=== PATIENT | female | born 1935 | race Caucasian/White ===

== ENCOUNTER 2017-01-15 17:51 | Emergency (ER) | payer MEDICARE, MEDICAID ==
[~2017-01-15] VITALS: Ht 162.6 cm; Wt 109.0 kg
[~2017-01-15 17:51] MED LIST: ADVA250A INH; ALBU6.7H INH; AMIO200 PO; CARD240C6 PO; CEPH500 PO; DIPH12.5S PO; Digoxin PO; ENAL10TA7 PO; FURO20 PO; GABA100C4 PO; GABA300C3 PO; KCL20 PO; LEVO.1 PO; LORA10 PO; LORTA5 PO; METO25 PO; MOME17I; NAPR-576 PO; POTA-243 PO; PRED20 PO; RANI150 PO; RIVA20 PO; ZOLP10TA3 PO
[2017-01-15 18:12] VITALS: BP 202/91; PULSE 69; RESP 16; TEMP 97.6; O2SAT 97
[2017-01-15 18:34] VITALS: BP 217/105; PULSE 67; RESP 18; O2SAT 95
[2017-01-15] MEDS ORDERED: SENO8.6T5 PO (18:41)
[2017-01-15] MEDS ORDERED: FURO1TAB62 PO (18:41)
[2017-01-15] MEDS ORDERED: LEVO.125 PO (18:41)
[2017-01-15] MEDS ORDERED: GABA300C5 PO (18:41)
[2017-01-15] MEDS ORDERED: LOSA50TA PO (18:41)
[2017-01-15] MEDS ORDERED: POTA-163 PO (18:41)
[2017-01-15] MEDS ORDERED: FLUT50SP EACH NARE (18:41)
[2017-01-15] MEDS ORDERED: METO25TA3 PO (18:41)
[2017-01-15] MEDS ORDERED: CLAR10CA3 PO (18:41)
[2017-01-15] MEDS ORDERED: MELA5TAB15 PO (18:41)
[2017-01-15] MEDS ORDERED: PERC10TA27 PO (18:41)
--- NOTE | 2017-01-15 18:52 | PD ---
HPI Chief Complaint: Hypertension Time Seen by Provider: 18:52 Travel History International Travel<30 days: No Contact w/Intl Traveler<30days: No Traveled to known affect area: No History of Present Illness HPI 81 year-old female history of hypertension,, CAD, CHF, presents to the emergency department today for evaluation of right sided headache and high blood pressure since 4 PM. Patient states she took her evening antihypertensives and her blood pressure still has not reduced. Denies any chest tightness. No difficulty breathing. No focal deficit weakness. No nausea or vomiting. She has no other symptoms to report. PFSH Past Medical History Arthritis: Yes Asthma: Yes Heart Rhythm Problems: No Cancer: No Cardiovascular Problems: Yes High Cholesterol: No Chest Pain: Yes Congestive Heart Failure: Yes Diabetes: No Endocrine: Yes Genitourinary: No Hypertension: Yes Immune Disorder: No Kidney Stones: Yes Musculoskeletal: Yes (Osteoperosis) Neurologic: No Psychiatric: No Respiratory: Yes Sleep Apnea: Yes (wears CPAP) Thyroid Disease: Yes ?: Not Past Surgical History Abdominal Surgery: Yes (GALLBLADDER REMOVAL, APPENDECTOMY) Appendectomy: Yes Cardiac Surgery: No Cholecystectomy: Yes Ear Surgery: No Endocrine Surgery: No Eye Surgery: No Genitourinary Surgery: No Gynecologic Surgery: Yes (HYSTERECTOMY) Hysterectomy: Yes Joint Replacement: Yes (BILATERAL KNEE REPLACEMENT) Thoracic Surgery: No Tonsillectomy: Yes Other Surgery: Yes Social History Alcohol Use: No Tobacco Use: No Substance Use: No Allergies-Medications (Allergen,Severity, Reaction): Coded Allergies: benazepril (Unverified Allergy, Severe, 01/12/17) ANGIOEDEMA captopril (Unverified Allergy, Severe, 01/12/17) ANGIOEDEMA diatrizoate meglumine (Unverified Allergy, Severe, hives, 01/12/17) enalaprilat (Unverified Allergy, Severe, Edema, 01/12/17) ANGIOEDEMA fosinopril (Unverified Allergy, Severe, 01/12/17) ANGIOEDEMA gadobenic acid (Unverified Allergy, Severe, hives, 01/12/17) gadodiamide (Unverified Allergy, Severe, hives, 01/12/17) gadoteridol (Unverified Allergy, Severe, hives, 01/12/17) iodixanol (Unverified Allergy, Severe, hives, 01/12/17) iohexol (Unverified Allergy, Severe, hives, 01/12/17) lisinopril (Unverified Allergy, Severe, 01/12/17) ANGIOEDEMA nitrofurantoin (Unverified Allergy, Severe, 01/12/17) itching quinapril (Unverified Allergy, Severe, 01/12/17) ANGIOEDEMA Reported Meds & Prescriptions Reported Meds & Active Scripts Active Amlodipine (Amlodipine Besylate) 5 Mg Tab 5 Mg PO DAILY Reported Senokot (Sennosides) 8.6 Mg Tab 8.6 Mg PO DAILY Fluticasone Nasal [place] 50 Mcg/Act Naspr 100 Mcg EACH NARE BID 50 mcg/spray Claritin (Loratadine) 10 Mg Cap 10 Mg PO DAILY Potassium Chloride ER (Potassium Chloride) 20 Meq Tab 20 Meq PO DAILY Lasix (Furosemide) 20 Mg Tab 20 Mg PO DAILY PRN Melatonin 5 Mg Tab 5 Mg PO HS Percocet (Oxycodone-Acetaminophen) 10-325 mg Tab 1 Tab PO BID PRN Gabapentin 300 Mg Cap 300 Mg PO HS Losartan (Losartan Potassium) 50 Mg Tab 50 Mg PO DAILY Metoprolol Tartrate 25 Mg Tab 25 Mg PO BID Synthroid (Levothyroxine Sodium) 125 Mcg Tab 125 Mcg PO DAILY Review of Systems Except as stated in HPI: all other systems reviewed are Neg Physical Exam Narrative GENERAL: Well-nourished elderly female patient, in no acute distress SKIN: Focused skin assessment warm/dry. HEAD: Atraumatic. Normocephalic. EYES: Pupils equal and round. No scleral icterus. No injection or drainage. EOMI. ENT: No nasal bleeding or discharge. Mucous membranes pink and moist. NECK: Trachea midline. No JVD. CARDIOVASCULAR: Regular rate and rhythm. RESPIRATORY: No accessory muscle use. Clear to auscultation. Breath sounds equal bilaterally. GASTROINTESTINAL: Abdomen soft, non-tender, nondistended. Hepatic and splenic margins not palpable. MUSCULOSKELETAL: No obvious deformities. No clubbing. No cyanosis. No edema. NEUROLOGICAL: Awake and alert. No obvious cranial nerve deficits. Motor grossly within normal limits. Normal speech. PSYCHIATRIC: Appropriate mood and affect; insight and judgment normal. Data Data Last Documented VS Vital Signs Date Time Temp Pulse Resp B/P Pulse Ox O2 Delivery O2 Flow Rate FiO2 01/15/17 22:29 144/72 01/15/17 20:10 69 01/15/17 19:38 22 01/15/17 18:34 95 Room Air 01/15/17 18:12 97.6 Orders Electrocardiogram (01/15/17 19:18) Prothrombin Time / Inr (Pt) (01/15/17 19:18) Act Partial Throm Time (Ptt) (01/15/17 19:18) Complete Blood Count With Diff (01/15/17 19:18) Basic Metabolic Panel (Bmp) (01/15/17 19:18) Creatine Kinase (Cpk) (01/15/17 19:18) Troponin I (01/15/17 19:18) Urinalysis - C+S If Indicated (01/15/17 19:18) Ct Brain W/O Iv Contrast(Rout) (01/15/17 19:18) Chest, Single Ap (01/15/17 19:18) Ecg Monitoring (01/15/17 19:18) Iv Access Insert/Monitor (01/15/17 19:18) Oximetry (01/15/17 19:18) Sodium Chloride 0.9% Flush (Ns Flush) (01/15/17 19:30) Hydralazine Inj (Apresoline Inj) (01/15/17 19:45) Clonidine (Catapres) (01/15/17 19:45) Urine Culture (01/15/17 19:30) Ketorolac Inj (Toradol Inj) (01/15/17 20:45) Labs Laboratory Tests Test 01/15/17 19:30 White Blood Count 10.5 TH/MM3 Red Blood Count 4.23 MIL/MM3 Hemoglobin 13.4 GM/DL Hematocrit 40.9 % Mean Corpuscular Volume 96.6 FL Mean Corpuscular Hemoglobin 31.7 PG Mean Corpuscular Hemoglobin 32.9 % Concent Red Cell Distribution Width 14.0 % Platelet Count 210 TH/MM3 Mean Platelet Volume 11.7 FL Neutrophils (%) (Auto) 56.3 % Lymphocytes (%) (Auto) 32.7 % Monocytes (%) (Auto) 7.4 % Eosinophils (%) (Auto) 3.1 % Basophils (%) (Auto) 0.5 % Neutrophils # (Auto) 5.9 TH/MM3 Lymphocytes # (Auto) 3.4 TH/MM3 Monocytes # (Auto) 0.8 TH/MM3 Eosinophils # (Auto) 0.3 TH/MM3 Basophils # (Auto) 0.1 TH/MM3 CBC Comment AUTO DIFF Differential Comment AUTO DIFF CONFIRMED Prothrombin Time 10.7 SEC Prothromb Time International 1.0 RATIO Ratio Activated Partial 26.1 SEC Thromboplast Time Urine Color LIGHT-YELLOW Urine Turbidity CLEAR Urine pH 7.5 Urine Specific Sarah 1.006 Urine Protein NEG mg/dL Urine Glucose (UA) NEG mg/dL Urine Ketones NEG mg/dL Urine Occult Blood TRACE Urine Nitrite NEG Urine Bilirubin NEG Urine Urobilinogen LESS THAN 2.0 MG/DL Urine Leukocyte Esterase NEG Urine RBC 5 /hpf Urine Bacteria RARE /hpf Microscopic Urinalysis Comment CATH-CULTURE IND Sodium Level 138 MEQ/L Potassium Level 3.7 MEQ/L Chloride Level 104 MEQ/L Carbon Dioxide Level 29.6 MEQ/L Anion Gap 4 MEQ/L Blood Urea Nitrogen 8 MG/DL Creatinine 0.62 MG/DL Estimat Glomerular Filtration 93 ML/MIN Rate Random Glucose 93 MG/DL Calcium Level 9.1 MG/DL Total Creatine Kinase 60 U/L Troponin I LESS THAN 0.02 NG/ML MDM Medical Decision Making Medical Screen Exam Complete: Yes Emergency Medical Condition: Yes Medical Record Reviewed: Yes Differential Diagnosis Hypertension versus hypertension urgency versus intracranial etiology versus electrolyte abnormality Narrative Course 81 year-old female presents to the emergency department for evaluation of headache and hypertension. Patient is quite hypertensive here in the emergency department. She has no focal deficits or weakness. . I discussed the patient with my attending physician and patient is given IV hydralazine and 0.1 mg on nothing by mouth.CT imaging of brain is without acute concern. CBC and BMP are also without acute concern. Urinalysis is a trace occult blood, 5 RBC, rare bacteria, cultures indicated. Patient just completed a course antibiotics for UTI. We will wait for culture to grow before starting any antibiotic. Upon reassessment, patient's blood pressure has reduced. Her headache has resolved. She is sitting up in bed eating. Amlodipine has been prescribed and patient will contact her primary care provider tomorrow. She agrees to return immediately with any acute worsening of symptoms. Diagnosis Primary Impression: Hypertension Qualified Code: I10 - Essential hypertension Additional Impressions: Headache Qualified Code: R51 - Acute nonintractable headache, unspecified headache type Hematuria Qualified Code: R31.29 - Other microscopic hematuria Referrals: Primary Care Physician Patient Instructions: General Instructions, Hypertension (ED) Departure Forms: Tests/Procedures Additional Instructions: Start amlodipine 5 mg by mouth daily with your daily medications Follow-up with your primary care provider. Contact them for an appointment early next week Return immediately to the emergency department with any acute worsening of symptoms Med/Other Pt SpecificInfo: Prescription(s) given Scripts Amlodipine 5 Mg Tab5 Mg PO DAILY #30 TAB Ref 0 Prov:Ai Tejada 01/15/17 Disposition: 01 DISCHARGE HOME Condition: Stable Ai Tejada Jan 15, 2017 18:52
[2017-01-15] MEDS ORDERED: SODIUM CHLORIDE 0.9% FLUSH 10 ML FLUSH IVF PRN (19:30)
[2017-01-15 19:38] VITALS: RESP 22
[2017-01-15] MEDS ORDERED: cloNIDine HCL 0.1 MG TAB PO ONE (19:45)
[2017-01-15] MEDS ORDERED: hydrALAZINE HCL 20 MG/ML VIAL IV PUSH ONE (19:45)
--- NOTE | 2017-01-15 19:53 | RADRPT ---
EXAM DATE/TIME: 01/15/2017 19:27 [facility] COMPARISON: No previous studies available for comparison. INDICATIONS : Headaches with dizziness for one day. RADIATION DOSE: 56.39 CTDIvol (mGy) MEDICAL HISTORY : Hypertension. Congestive heart failure. SURGICAL HISTORY : Appendectomy. Cholecystectomy.Hysterectomy. ENCOUNTER: Initial ACUITY: 1 day PAIN SCALE: 3/10 LOCATION: Bilateral cranial TECHNIQUE: Multiple contiguous axial images were obtained of the head. Using automated exposure control and adj ustment of the mA and/or kV according to patient size, radiation dose was kept as low as reasonably a chievable to obtain optimal diagnostic quality images. DICOM format image data is available electro nically for review and comparison. FINDINGS: CEREBRUM: The ventricles are normal for age. No evidence of midline shift, mass lesion, hemorrhage or acute in farction. No extra-axial fluid collections are seen. POSTERIOR FOSSA: The cerebellum and brainstem are intact. The 4th ventricle is midline. The cerebellopontine angle i s unremarkable. EXTRACRANIAL: The visualized portion of the orbits is intact. SKULL: Benign-appearing diffuse hyperostosis noted. No focal lesion. No fracture. CONCLUSION: No acute intracranial abnormality. Kaz Espinoza MD on January 15, 2017 at 19:51 Board Certified Radiologist. This report was verified electronically.
[2017-01-15 19:54] LABS: AUTOMATED NEUTROPHIL # 5.9 TH/MM3 (1.8-7.7); BASOPHIL # 0.1 TH/MM3 (0-0.2); BASOPHIL % 0.5 % (0.0-2.0); EOSINOPHIL # 0.3 TH/MM3 (0-0.4); EOSINOPHIL % 3.1 % (0.0-4.0); HEMATOCRIT 40.9 % (35.0-46.0); LYMPH % 32.7 % (9.0-44.0); LYMPHOCYTE # 3.4 TH/MM3 (1.0-4.8); MEAN CELL VOLUME 96.6 FL (80.0-100.0); MEAN CORPUSCULAR HEMOGLOBIN 31.7 PG (27.0-34.0); MEAN CORPUSCULAR HGB CONC 32.9 % (32.0-36.0); MONO % 7.4 % (0.0-8.0); NEUT % 56.3 % (16.0-70.0); PLATELET COUNT 210 TH/MM3 (150-450); RED BLOOD COUNT 4.23 MIL/MM3 (4.00-5.30); WHITE BLOOD COUNT 10.5 TH/MM3 (4.0-11.0)
[2017-01-15 19:58] LABS: HEMO FLAGS AUTO DIFF
[2017-01-15 20:04] LABS: APTT (PATIENT) 26.1 SEC (24.3-30.1); PROTHROMBIN TIME - PATIENT 10.7 SEC (9.8-11.6)
--- NOTE | 2017-01-15 20:05 | RADRPT ---
EXAM DATE/TIME: 01/15/2017 19:39 [facility] COMPARISON: CHEST SINGLE AP, October 31, 2013, 13:57. INDICATIONS : CVA. MEDICAL HISTORY : Hypertension. SURGICAL HISTORY : None. ENCOUNTER: Initial ACUITY: 1 day PAIN SCORE: 0/10 LOCATION: Bilateral chest FINDINGS: A single view of the chest demonstrates the lungs to be symmetrically aerated without evidence of mas s, infiltrate or effusion. The cardiomediastinal contours are unremarkable. Osseous structures are intact. CONCLUSION: No evidence of acute cardiopulmonary disease. Kaz Espinoza MD on January 15, 2017 at 20:03 Board Certified Radiologist. This report was verified electronically.
[2017-01-15 20:06] LABS: BACTERIA, URINE RARE /hpf; BLOOD, URINE TRACE (NEG); GLUCOSE,URINE NEG (NEG); KETONE, URINE NEG (NEG); NITRITE,URINE NEG (NEG); PH, URINE 7.5 (5.0-8.5); URINE COLOR LIGHT-YELLOW (YELLW/STRAW)
[2017-01-15 20:10] VITALS: BP 170/62; PULSE 69
[2017-01-15 20:14] LABS: COMMENT (UR) CATH-CULTURE IND; CULTURE IF INDICATED CATH CULTURE IND
[2017-01-15 20:18] LABS: ANION GAP 4 MEQ/L (5-15); BICARBONATE 29.6 MEQ/L (21.0-32.0); BLOOD UREA NITROGEN 8 MG/DL (7-18); CHLORIDE 104 MEQ/L (98-107); GLOMERULAR FILTRATION RATE 93 ML/MIN (>89); POTASSIUM 3.7 MEQ/L (3.5-5.1); SODIUM (NA) 138 MEQ/L (136-145)
[2017-01-15 20:22] LABS: CREATINE KINASE 60 U/L (26-192)
[2017-01-15 20:26] LABS: SCAN/DIFF AUTO DIFF CONFIRMED
[2017-01-15] MEDS ORDERED: AMLO5TAB2 PO (20:45)
[2017-01-15] MEDS ORDERED: KETOROLAC TROMETHAMINE 30 MG/ML (IVP) VIAL IV PUSH ONE (20:45)
[2017-01-15 22:29] VITALS: BP 144/72
--- NOTE | 2017-01-16 15:19 | EKG ---
Date Performed: 01/15/2017 Time Performed: 19:50:47 PTAGE: 81 years EKG: Sinus rhythm BORDERLINE LEFT AXIS DEVIATION MODERATE VOLTAGE CRITERIA FOR LVH, CONSIDER NORMAL VARIANT NONSPECIFI C T-WAVE ABNORMALITY Compared to previous tracing, there's a rhythm change from atrial fibrillation t o sinus rhythm. ST-T changes have improved to some degree. BORDERLINE ECG PREVIOUS TRACING : 11/02/2013 01.56 DOCTOR: Kam Munoz Interpretating Date/Time 01/16/2017 15:19:15
== END 2017-01-15 22:30 | disposition home or self-care (01) ==
LOC: NEPE 17:51
DX: I10 Essential (primary) hypertension (principal); R51 Headache; R31.29 Other microscopic hematuria; E03.9 Hypothyroidism, unspecified; G47.33 Obstructive sleep apnea (adult) (pediatric); J45.909 Unspecified asthma, uncomplicated; M19.90 Unspecified osteoarthritis, unspecified site; R07.9 Chest pain, unspecified
CPT/HCPCS: 70450; 71010; 80048; 81001; 82550; 84484; 85025; 85610; 85730; 87086; 93005; 96374; 99285; J0360

== ENCOUNTER 2017-03-08 10:10 | Emergency (ER) | payer MEDICARE, MEDICAID ==
[~2017-03-08] VITALS: Ht 162.6 cm; Wt 108.0 kg
[~2017-03-08 10:10] MED LIST changes: -ADVA250A INH; -ALBU6.7H INH; -AMIO200 PO; +AMLO5TAB2 PO; -CARD240C6 PO; -CEPH500 PO; +CLAR10CA3 PO; -DIPH12.5S PO; -Digoxin PO; -ENAL10TA7 PO; +FLUT50SP EACH NARE; +FURO1TAB62 PO; -FURO20 PO; -GABA100C4 PO; -GABA300C3 PO; +GABA300C5 PO; -KCL20 PO; -LEVO.1 PO; +LEVO.125 PO; -LORA10 PO; -LORTA5 PO; +LOSA50TA PO; +MELA5TAB15 PO; -METO25 PO; +METO25TA3 PO; -MOME17I; -NAPR-576 PO; +PERC10TA27 PO; +POTA-163 PO; -POTA-243 PO; -PRED20 PO; -RANI150 PO; -RIVA20 PO; +SENO8.6T5 PO; -ZOLP10TA3 PO
[2017-03-08 11:18] VITALS: BP 166/76; PULSE 81; RESP 18; TEMP 98.8; O2SAT 100
--- NOTE | 2017-03-08 11:43 | PD ---
HPI Chief Complaint: Hypertension Time Seen by Provider: 11:30 Travel History International Travel<30 days: No Contact w/Intl Traveler<30days: No Traveled to known affect area: No History of Present Illness HPI This is a 81-year-old female with history of hypertension who presents for evaluation of headache. She reports that yesterday evening she developed a frontal aching headache, nausea and vomiting. She reports that this is what she typically experiences when her blood pressure is elevated. She reports that she checked her blood pressure was elevated however she does not recall the specific numbers. The headache and hypertension persisted today which prompted evaluation. Her blood pressure is currently 166/76 and she reports that this is her normal blood pressure. She reports that the headache has improved some but she continues to have some headache and nausea. She denies blurred vision, chest pain, shortness of breath, abdominal pain, flank pain, dysuria, fevers, chills. She reports that one month ago her primary care physician increased her losartan to 50 mg twice a day as well as her metoprolol to 25 mg twice a day. She is also on Norvasc 5 mg once a day. She has been taking her medication as prescribed. She has no other complaints at this time. [facility] Past Medical History Arthritis: Yes Asthma: Yes Heart Rhythm Problems: No Cancer: No Cardiovascular Problems: Yes High Cholesterol: No Chest Pain: Yes Congestive Heart Failure: Yes Diabetes: No Endocrine: Yes Gastrointestinal Disorders: No Genitourinary: No Hypertension: Yes Immune Disorder: No Implanted Vascular Access Dvce: No Kidney Stones: Yes Musculoskeletal: Yes (Osteoperosis) Neurologic: No Psychiatric: No Respiratory: Yes Sleep Apnea: Yes (wears CPAP) Thyroid Disease: Yes ?: Not Past Surgical History Abdominal Surgery: Yes (GALLBLADDER REMOVAL, APPENDECTOMY) Appendectomy: Yes Cardiac Surgery: No Cholecystectomy: Yes Ear Surgery: No Endocrine Surgery: No Eye Surgery: No Genitourinary Surgery: No Gynecologic Surgery: Yes (HYSTERECTOMY) Hysterectomy: Yes Joint Replacement: Yes (BILATERAL KNEE REPLACEMENT) Neurologic Surgery: No Thoracic Surgery: No Tonsillectomy: Yes Other Surgery: Yes Social History Alcohol Use: No Tobacco Use: No Substance Use: No Allergies-Medications (Allergen,Severity, Reaction): Coded Allergies: benazepril (Unverified Allergy, Severe, 01/12/17) ANGIOEDEMA captopril (Unverified Allergy, Severe, 01/12/17) ANGIOEDEMA diatrizoate meglumine (Unverified Allergy, Severe, hives, 01/12/17) enalaprilat (Unverified Allergy, Severe, Edema, 01/12/17) ANGIOEDEMA fosinopril (Unverified Allergy, Severe, 01/12/17) ANGIOEDEMA gadobenic acid (Unverified Allergy, Severe, hives, 01/12/17) gadodiamide (Unverified Allergy, Severe, hives, 01/12/17) gadoteridol (Unverified Allergy, Severe, hives, 01/12/17) iodixanol (Unverified Allergy, Severe, hives, 01/12/17) iohexol (Unverified Allergy, Severe, hives, 01/12/17) lisinopril (Unverified Allergy, Severe, 01/12/17) ANGIOEDEMA nitrofurantoin (Unverified Allergy, Severe, 01/12/17) itching quinapril (Unverified Allergy, Severe, 01/12/17) ANGIOEDEMA Iodinated Contrast- Oral and IV Dye (Verified Allergy, Unknown, 03/08/17) Reported Meds & Prescriptions Reported Meds & Active Scripts Active Phenergan (Promethazine HCl) 25 Mg Tablet 25 Mg PO Q6H PRN Amlodipine (Amlodipine Besylate) 5 Mg Tab 5 Mg PO DAILY Reported Omeprazole 20 Mg Tab 20 Mg PO DAILY Amitriptyline (Amitriptyline HCl) 25 Mg Tab 25 Mg PO HS Tramadol (Tramadol HCl) 50 Mg Tab 50 Mg PO QID Melatonin 3 Mg Tab 3 Mg PO HS Metoprolol Succinate ER 24 HR (Metoprolol Succinate) 25 Mg Tab 25 Mg PO BID Fluticasone Nasal [place] 50 Mcg/Act Naspr 2 [place] EACH NARE BID 50 mcg/spray Losartan (Losartan Potassium) 50 Mg Tab 50 Mg PO DAILY Synthroid (Levothyroxine Sodium) 125 Mcg Tab 125 Mcg PO DAILY Review of Systems Except as stated in HPI: all other systems reviewed are Neg Physical Exam Narrative GENERAL: Pleasant well-developed well-nourished female in no acute distress answering questions appropriately. Her vital signs have been reviewed. SKIN: Warm and dry. HEAD: Atraumatic. Normocephalic. EYES: Pupils equal and round. No scleral icterus. No injection or drainage. ENT: No nasal bleeding or discharge. Mucous membranes pink and moist. NECK: Trachea midline. No JVD. CARDIOVASCULAR: Regular rate and rhythm. No murmur appreciated. RESPIRATORY: No accessory muscle use. Clear to auscultation. Breath sounds equal bilaterally. GASTROINTESTINAL: Abdomen soft, non-tender, nondistended. Hepatic and splenic margins not palpable. MUSCULOSKELETAL: No obvious deformities. No clubbing. No cyanosis. No edema. NEUROLOGICAL: Awake and alert. No obvious cranial nerve deficits. Motor grossly within normal limits. Normal speech. PSYCHIATRIC: Appropriate mood and affect; insight and judgment normal. Data Data Last Documented VS Vital Signs Date Time Temp Pulse Resp B/P (MAP) Pulse Ox O2 Delivery O2 Flow Rate FiO2 03/08/17 12:13 75 18 161/73 (102) 95 Room Air 03/08/17 11:18 98.8 Orders Orders Complete Blood Count With Diff (03/08/17 11:34) Comprehensive Metabolic Panel (03/08/17 11:34) Ct Brain W/O Iv Contrast(Rout) (03/08/17 11:34) Ecg Monitoring (03/08/17 11:34) Iv Access Insert/Monitor (03/08/17 11:34) Oximetry (03/08/17 11:34) Ondansetron Inj (Zofran Inj) (03/08/17 11:45) Morphine Inj (Morphine Inj) (03/08/17 11:45) Electrocardiogram (03/08/17 ) Magnesium (Mg) (03/08/17 11:34) Labs Laboratory Tests Test 03/08/17 12:05 White Blood Count 10.4 TH/MM3 Red Blood Count 4.62 MIL/MM3 Hemoglobin 14.8 GM/DL Hematocrit 44.1 % Mean Corpuscular Volume 95.3 FL Mean Corpuscular Hemoglobin 32.1 PG Mean Corpuscular Hemoglobin Concent 33.7 % Red Cell Distribution Width 13.3 % Platelet Count 160 TH/MM3 Mean Platelet Volume 11.6 FL Neutrophils (%) (Auto) 82.5 % Lymphocytes (%) (Auto) 13.5 % Monocytes (%) (Auto) 3.7 % Eosinophils (%) (Auto) 0.1 % Basophils (%) (Auto) 0.2 % Neutrophils # (Auto) 8.6 TH/MM3 Lymphocytes # (Auto) 1.4 TH/MM3 Monocytes # (Auto) 0.4 TH/MM3 Eosinophils # (Auto) 0.0 TH/MM3 Basophils # (Auto) 0.0 TH/MM3 CBC Comment DIFF FINAL Differential Comment Blood Urea Nitrogen 8 MG/DL Creatinine 0.61 MG/DL Random Glucose 105 MG/DL Total Protein 7.9 GM/DL Albumin 3.5 GM/DL Calcium Level 9.3 MG/DL Magnesium Level 2.1 MG/DL Alkaline Phosphatase 137 U/L Aspartate Amino Transf (AST/SGOT) 26 U/L Alanine Aminotransferase (ALT/SGPT) 16 U/L Total Bilirubin 0.8 MG/DL Sodium Level 138 MEQ/L Potassium Level 3.6 MEQ/L Chloride Level 103 MEQ/L Carbon Dioxide Level 25.9 MEQ/L Anion Gap 9 MEQ/L Estimat Glomerular Filtration Rate 95 ML/MIN MDM Medical Decision Making Medical Screen Exam Complete: Yes Emergency Medical Condition: Yes Medical Record Reviewed: Yes Differential Diagnosis Hypertensive urgency, intracranial hemorrhage, subarachnoid hemorrhage, tension headache, temporal arteritis Narrative Course The patient will be placed on ECG monitoring pulse oximetry. Plan is for basic lab work, EKG, CT brain. The patient will be given IV morphine and Zofran. Discussed with my attending who agrees with plan of care. Upon recheck the patient's headache is resolved and she is currently symptomatic. Her blood pressures improved to [address] brain is unremarkable and lab work is unremarkable. The patient is encouraged to follow- up with her primary care physician to discuss her blood pressure management. She is stable for discharge. Diagnosis Primary Impression: Cephalgia Qualified Codes: R51 - Headache Additional Impression: Hypertension Qualified Codes: I10 - Essential (primary) hypertension Additional Instructions: Follow-up close with primary care physician. Phenergan for nausea. Return for any emergent medical conditions. Med/Other Pt SpecificInfo: Prescription(s) given Scripts Promethazine (Phenergan) 25 Mg Tablet 25 MG PO Q6H Y for NAUSEA OR VOMITING, #15 TAB 0 Refills Prov: Christo Sweeney MD 03/08/17 Disposition: 01 DISCHARGE HOME Condition: Stable Sergo Briggs Mar 08, 2017 11:43
[2017-03-08] MEDS ORDERED: MORPHINE SULFATE 4 MG/ML INJ IV PUSH ONE (11:45)
[2017-03-08] MEDS ORDERED: ONDANSETRON HCL 4 MG/2 ML VIAL IVP ONE (11:45)
[2017-03-08] MEDS ORDERED: METO25TA6 PO (11:59)
[2017-03-08] MEDS ORDERED: AMIT25TA9 PO (12:00)
[2017-03-08] MEDS ORDERED: MELA3TAB PO (12:00)
[2017-03-08] MEDS ORDERED: OMEP20TA PO (12:00)
[2017-03-08] MEDS ORDERED: TRAM50TA PO (12:00)
[2017-03-08 12:06] VITALS: RESP 18; O2SAT 98
--- NOTE | 2017-03-08 12:12 | RADRPT ---
EXAM DATE/TIME: 03/08/2017 12:01 [facility] COMPARISON: CT BRAIN W/O CONTRAST, January 15, 2017, 19:27. INDICATIONS : Dizziness, nausea and vomiting today. RADIATION DOSE: 36.28 CTDIvol (mGy) MEDICAL HISTORY : Hypertension. SURGICAL HISTORY : Hysterectomy. Cholecystectomy. ENCOUNTER: Initial ACUITY: 1 day PAIN SCALE: 0/10 LOCATION: Bilateral head TECHNIQUE: Multiple contiguous axial images were obtained of the head. Using automated exposure control and adj ustment of the mA and/or kV according to patient size, radiation dose was kept as low as reasonably a chievable to obtain optimal diagnostic quality images. DICOM format image data is available electro nically for review and comparison. FINDINGS: CEREBRUM: The ventricles are normal for age. No evidence of midline shift, mass lesion, hemorrhage or acute in farction. No extra-axial fluid collections are seen. POSTERIOR FOSSA: The cerebellum and brainstem are intact. The 4th ventricle is midline. The cerebellopontine angle i s unremarkable. EXTRACRANIAL: The visualized portion of the orbits is intact. SKULL: The calvaria is intact. No evidence of skull fracture. CONCLUSION: Normal examination for a patient of this age. No significant change has occurred. Brown Mayer MD on March 08, 2017 at 12:09 Board Certified Radiologist. This report was verified electronically.
[2017-03-08 12:13] VITALS: BP 161/73; PULSE 75; RESP 18; O2SAT 95
[2017-03-08 12:57] LABS: AUTOMATED NEUTROPHIL # 8.6 TH/MM3 (1.8-7.7); BASOPHIL % 0.2 % (0.0-2.0); EOSINOPHIL % 0.1 % (0.0-4.0); HEMATOCRIT 44.1 % (35.0-46.0); HEMO FLAGS DIFF FINAL; LYMPH % 13.5 % (9.0-44.0); LYMPHOCYTE # 1.4 TH/MM3 (1.0-4.8); MEAN CELL VOLUME 95.3 FL (80.0-100.0); MEAN CORPUSCULAR HEMOGLOBIN 32.1 PG (27.0-34.0); MEAN CORPUSCULAR HGB CONC 33.7 % (32.0-36.0); MONO % 3.7 % (0.0-8.0); NEUT % 82.5 % (16.0-70.0); PLATELET COUNT 160 TH/MM3 (150-450); RED BLOOD COUNT 4.62 MIL/MM3 (4.00-5.30); RED CELL DISTRIBUTION WIDTH 13.3 % (11.6-17.2); WHITE BLOOD COUNT 10.4 TH/MM3 (4.0-11.0)
[2017-03-08 13:07] LABS: ALKALINE PHOSPHATASE 137 U/L (45-117); ALT (GPT) 16 U/L (10-53); TOTAL BILIRUBIN ADULT 0.8 MG/DL (0.2-1.0)
[2017-03-08 13:15] LABS: ANION GAP 9 MEQ/L (5-15); AST (GOT) 26 U/L (15-37); BICARBONATE 25.9 MEQ/L (21.0-32.0); BLOOD UREA NITROGEN 8 MG/DL (7-18); CHLORIDE 103 MEQ/L (98-107); GLOMERULAR FILTRATION RATE 95 ML/MIN (>89); MAGNESIUM 2.1 MG/DL (1.5-2.5); POTASSIUM 3.6 MEQ/L (3.5-5.1); SODIUM (NA) 138 MEQ/L (136-145)
[2017-03-08] MEDS ORDERED: PROM25TA10 PO (13:16)
--- NOTE | 2017-03-08 16:00 | EKG ---
Date Performed: 03/08/2017 Time Performed: 13:08:00 PTAGE: 81 years EKG: Sinus rhythm BORDERLINE LEFT AXIS DEVIATION INCOMPLETE RIGHT BUNDLE BRANCH BLOCK MODERATE T-WAVE ABNORMALITY, CON CULINARY CHEF ANTERIOR ISCHEMIA Compared to prior tracing no significant change ABNORMAL ECG PREVIOUS TRACING : 01/15/2017 19.50 DOCTOR: Isaías Murray Interpretating Date/Time 03/08/2017 15:59:50
== END 2017-03-08 16:48 | disposition home or self-care (01) ==
LOC: NEPE 10:10
DX: R51 Headache (principal); I10 Essential (primary) hypertension; R11.2 Nausea with vomiting, unspecified; R94.31 Abnormal electrocardiogram [ECG] [EKG]; E07.9 Disorder of thyroid, unspecified; G47.30 Sleep apnea, unspecified; Z87.39 Personal history of other diseases of the musculoskeletal system and connective tissue; Z87.09 Personal history of other diseases of the respiratory system; Z86.79 Personal history of other diseases of the circulatory system; Z87.442 Personal history of urinary calculi
CPT/HCPCS: 70450; 80053; 83735; 85025; 93005; 96374; 96375; 99285; J2270; J2405

== ENCOUNTER 2018-03-30 19:42 | Observation (INO) ==
[2018-03-30] MEDS ORDERED: Labetalol HCl Inj 100 MG/20 ML Vial IV.PUSH ONE ×2 (20:28→21:19)
--- NOTE | 2018-03-30 20:43 | ED ---
HPI General Chief complaint: Headache Stated complaint: Headache Time Seen by Provider: 03/30/18 20:22 Source: patient and EMS Mode of arrival: EMS Limitations: no limitations History of Present Illness HPI narrative: 82-year-old female with history of hypertension brought in by ambulance from home for evaluation of a headache. Patient reports that the headache started 3 hours prior to arrival, gradual in onset, is frontal and radiates to her right temporal area, currently 10 out of 10. She is unable to describe the pain, but states that it is constant. She has history of arthritis and states that she took Tylenol at around 1 PM today, and was afraid to take anything else for pain when her headache started. She does not have history of headaches. She has chronic neck pain from arthritis and she has had 2 surgeries on her neck, however no new neck pain or stiffness today. No fevers or chills. No visual changes. No paresthesias or motor deficits. No nausea or vomiting. No photophobia. BP is notably elevated at 220/110. She reports that she is on 4 different antihypertensives and has taken them today. Related Data Home Medications Medication Instructions Recorded Confirmed furosemide [Lasix] 20 mg PO DAILY 03/18/18 03/30/18 gabapentin 100 mg PO HS 03/18/18 03/30/18 gabapentin 300 mg PO BID 03/18/18 03/30/18 levothyroxine [Synthroid] 125 mcg PO DAILY 03/18/18 03/30/18 loratadine 10 mg PO DAILY 03/18/18 03/30/18 losartan 50 mg PO DAILY 03/18/18 03/30/18 metoprolol tartrate 25 mg PO BID 03/18/18 03/30/18 prednisone 5 mg PO DAILY 03/18/18 03/30/18 spironolactone 25 mg PO DAILY 03/18/18 03/30/18 Allergies Allergy/AdvReac Type Severity Reaction Status Date / Time benazepril Allergy Severe Hives Verified 03/30/18 20:06 captopril Allergy Severe Hives Verified 03/30/18 20:06 diatrizoate meglumine Allergy Severe hives Verified 03/30/18 20:06 enalaprilat Allergy Severe Edema Verified 03/30/18 20:06 fosinopril Allergy Severe Hives Verified 03/30/18 20:06 gadobenic acid Allergy Severe hives Verified 03/30/18 20:06 gadodiamide Allergy Severe hives Verified 03/30/18 20:06 gadoteridol Allergy Severe hives Verified 03/30/18 20:06 iodixanol Allergy Severe hives Verified 03/30/18 20:06 iohexol Allergy Severe hives Verified 03/30/18 20:06 lisinopril Allergy Severe Hives Verified 03/30/18 20:06 nitrofurantoin Allergy Severe Hives Verified 03/30/18 20:06 quinapril Allergy Severe Hives Verified 03/30/18 20:06 Iodinated Contrast- Oral and Allergy Intermediate Hives Verified 03/30/18 20:06 IV Dye Review of Systems ROS: all other systems reviewed are negative PMFSH Social History Social History Substance History: No History of Abuse Second Hand Smoke Exposure: No Smoking Status: Never smoker How Often Do You Have a Drink Containing Alcohol: Never Recent Travel in [facility] within the Last 8 Weeks: No Recent Out of Country Travel within the Last 8 Weeks: No Immunization History Tetanus Immunization: Unsure Exam Narrative Exam Narrative: GENERAL: Well-developed, well-nourished, sitting comfortably on the side of her stretcher, no apparent distress, awake, alert, GCS 15. SKIN: Focused skin assessment warm/dry. No rash. HEAD: Atraumatic. Normocephalic. EYES: Pupils equal, round, 3 mm, reactive to light. EOMI. No nystagmus. No scleral icterus. No injection or drainage. ENT: No nasal bleeding or discharge. Mucous membranes pink and moist. NECK: Trachea midline. No JVD. No nuchal rigidity. CARDIOVASCULAR: Regular rate and rhythm. RESPIRATORY: No accessory muscle use. Clear to auscultation. Breath sounds equal bilaterally. GASTROINTESTINAL: Abdomen soft, non-tender, nondistended. MUSCULOSKELETAL: No obvious deformities. No clubbing. No cyanosis. No edema. NEUROLOGICAL: Awake and alert. No obvious cranial nerve deficits. Motor grossly within normal limits. Normal speech. PSYCHIATRIC: Appropriate mood and affect; insight and judgment normal. Course Initial Documented Vital Signs Temperature 98.1 F 03/30/18 19:56 Pulse Rate 76 03/30/18 19:56 Respiratory Rate 20 03/30/18 19:56 Blood Pressure 196/114 H 03/30/18 19:56 Pulse Oximetry 98 03/30/18 19:56 Last Documented Vital Signs Temperature 98.1 F 03/30/18 19:56 Pulse Rate 74 03/30/18 22:34 Respiratory Rate 18 03/30/18 22:34 Blood Pressure 161/72 H 03/30/18 22:34 Pulse Oximetry 95 03/30/18 22:34 Medical Decision Making MDM Narrative Medical decision making narrative: Vital signs reviewed. CBC and CMP are essentially unremarkable. ESR is 45. CT head: CONCLUSION: 1. Negative CT Head non contrast. Patient was given 10 mg of IV labetalol initially with some improvement in her blood pressure to 170/90. She was also provided IV Reglan and dose of oral Tylenol and on reassessment she states her headache is slightly improved at an 8 out of 10. She was given another 10 mg of IV labetalol again with some improvement in her blood pressure to 150/60. On reassessment she rates her headache as 5 out of 10. Her ESR is slightly elevated at 45, however she is not having any visual changes. This could still be temporal arteritis. She will be given a dose of Solu-Medrol. Because of her body habitus, I believe it would be difficult to perform an LP at the bedside. The headache was gradual in onset, and CT head was performed within 6 hours of symptom onset. I believe that SAH is less likely. She is overall very well-appearing. Given intractable headache, she will be admitted for overnight observation for further treatment and evaluation. Case discussed with hospitalist Dr. Grover who will admit the patient to his service. Medical Screen Exam Complete: Yes Emergency Medical Condition: Yes Lab Data Result diagrams: 03/30/18 20:37 03/30/18 20:37 Lab Results 03/30/18 03/30/18 03/30/18 Range/Units 20:37 20:37 20:37 WBC 13.2 H (4.0-11.0) th/mm3 RBC 4.28 (4.00-5.30) mil/mm3 Hgb 13.7 (11.6-15.3) gm/dL Hct 40.7 (35.0-46.0) % MCV 95.2 (80.0-100.0) fL MCH 32.1 (27.0-34.0) pg MCHC 33.7 (32.0-36.0) % RDW 13.9 (11.6-17.2) % Plt Count 179 (150-450) th/mm3 MPV 11.3 H (7.0-11.0) fL Neut % (Auto) 70.3 H (16.0-70.0) % Lymph % (Auto) 22.8 (9.0-44.0) % [place] % (Auto) 5.7 (0.0-8.0) % Eos % (Auto) 0.8 (0.0-4.0) % Baso % (Auto) 0.4 (0.0-2.0) % Neut # (Auto) 9.3 H (1.8-7.7) th/mm3 Lymph # (Auto) 3.0 (1.0-4.8) th/mm3 Marathon # (Auto) 0.7 (0.0-0.9) th/mm3 Eos # (Auto) 0.1 (0.0-0.4) th/mm3 Baso # (Auto) 0.1 (0.0-0.2) th/mm3 WBC Differential . Differential Comment Auto diff final ESR (0-30) mm/hr PT 10.0 (9.8-11.6) sec INR 1.0 Ratio APTT 27.3 (24.3-30.1) sec Sodium 141 (136-145) meq/L Potassium 3.5 (3.5-5.1) meq/L Chloride 104 (98-107) meq/L Carbon Dioxide 29.2 (21.0-32.0) meq/L Anion Gap 8 (5-15) meq/L BUN 16 (7-18) mg/dL Creatinine 0.70 (0.50-1.00) mg/dL Estimated GFR 81 L (>89) mL/min Random Glucose 99 (74-106) mg/dL Calcium 9.4 (8.5-10.1) mg/dL Total Bilirubin 0.6 (0.2-1.0) mg/dL AST 17 (15-37) U/L ALT 17 (10-53) U/L Alkaline Phosphatase 114 (45-117) U/L Total Protein 8.1 (6.4-8.2) g/dL Albumin 3.6 (3.4-5.0) g/dL 10/31/18 Range/Units 20:37 WBC (4.0-11.0) th/mm3 RBC (4.00-5.30) mil/mm3 Hgb (11.6-15.3) gm/dL Hct (35.0-46.0) % MCV (80.0-100.0) fL MCH (27.0-34.0) pg MCHC (32.0-36.0) % RDW (11.6-17.2) % Plt Count (150-450) th/mm3 MPV (7.0-11.0) fL Neut % (Auto) (16.0-70.0) % Lymph % (Auto) (9.0-44.0) % Marathon % (Auto) (0.0-8.0) % Eos % (Auto) (0.0-4.0) % Baso % (Auto) (0.0-2.0) % Neut # (Auto) (1.8-7.7) th/mm3 Lymph # (Auto) (1.0-4.8) th/mm3 Marathon # (Auto) (0.0-0.9) th/mm3 Eos # (Auto) (0.0-0.4) th/mm3 Baso # (Auto) (0.0-0.2) th/mm3 WBC Differential Differential Comment ESR 45 H (0-30) mm/hr PT (9.8-11.6) sec INR Ratio APTT (24.3-30.1) sec Sodium (136-145) meq/L Potassium (3.5-5.1) meq/L Chloride (98-107) meq/L Carbon Dioxide (21.0-32.0) meq/L Anion Gap (5-15) meq/L BUN (7-18) mg/dL Creatinine (0.50-1.00) mg/dL Estimated GFR (>89) mL/min Random Glucose (74-106) mg/dL Calcium (8.5-10.1) mg/dL Total Bilirubin (0.2-1.0) mg/dL AST (15-37) U/L ALT (10-53) U/L Alkaline Phosphatase (45-117) U/L Total Protein (6.4-8.2) g/dL Albumin (3.4-5.0) g/dL Imaging Data Radiologist's impression: Head CT 03/30/18 20:28 CONCLUSION: 1. Negative CT Head non contrast. . Discharge Plan Discharge Disposition Patient Disposition: 30 Still Patient Discharge Condition Condition: Stable Discharge Details Diagnosis: Acute intractable headache Physicians Team ED Provider: Michelet Roth Primary Care Provider: UNKNOWN, Rxs /Orders / Referrals /Forms Prescriptions: No Action losartan 50 mg Tablet 50 mg PO DAILY RF: 0 prednisone 5 mg Tablet 5 mg PO DAILY RF: 0 spironolactone 25 mg Tablet 25 mg PO DAILY RF: 0 levothyroxine [Synthroid] 125 mcg Tablet 125 mcg PO DAILY RF: 0 gabapentin 300 mg Capsule 300 mg PO BID RF: 0 furosemide [Lasix] 20 mg Tablet 20 mg PO DAILY RF: 0 gabapentin 100 mg Capsule 100 mg PO HS RF: 0 loratadine 10 mg Tablet 10 mg PO DAILY RF: 0 metoprolol tartrate 25 mg Tablet 25 mg PO BID RF: 0 Discharge Interventions Interventions: Vital Signs Last Done: 03/30/18 22:34 Status ED Status: With Doctor
--- NOTE | 2018-03-30 20:47 | CT ---
EXAM DATE: 03/30/2018 8:42 PM EDT AGE/SEX: 82 years / Female INDICATIONS: Headache. CLINICAL DATA: This is the patient's initial encounter. Patient reports that signs and symptoms have been present for 1 day and indicates a pain score of 10/10. MEDICAL/SURGICAL HISTORY: Spinal stenosis. Hypertension. Congestive heart failure. Cholecystectom y. RADIATION DOSE: 66.34 CTDI (mGy) COMPARISON: [facility] [place], 03/18/2018. . TECHNIQUE: CT of the head without contrast. Using automated exposure control and adjustment of the mA and/or kV according to patient size, radiation dose was kept as low as reasonably achievable to ob tain optimal diagnostic quality images. DICOM format image data is available electronically for revi ew and comparison. FINDINGS: Cerebrum: The ventricles are normal for age. No evidence of midline shift, mass lesion, hemorrhage or acute infarction. No extraaxial fluid collections are seen. Posterior Fossa: The cerebellum and brainstem are intact. The 4th ventricle is midline. The cerebe llopontine angle is unremarkable. Extracranial: The visualized portion of the orbits is intact. Skull: The calvaria is intact. No evidence of skull fracture. CONCLUSION: 1. Negative CT Head non contrast. . Electronically signed by: Percy Sherwood MD 03/30/2018 8:46 PM EDT
[2018-03-30 21:00] LABS: Baso # (Auto) 0.1 th/mm3 (0.0-0.2); Baso % (Auto) 0.4 % (0.0-2.0); Eos # (Auto) 0.1 th/mm3 (0.0-0.4); Eos % (Auto) 0.8 % (0.0-4.0); Hematocrit 40.7 % (35.0-46.0); Hemoglobin 13.7 gm/dL (11.6-15.3); Lymph % (Auto) 22.8 % (9.0-44.0); Mean Corpuscular HGB Conc 33.7 % (32.0-36.0); Mean Corpuscular Hemoglobin 32.1 pg (27.0-34.0); Mean Corpuscular Volume 95.2 fL (80.0-100.0); Mean Platelet Volume 11.3 fL (7.0-11.0); Mono # (Auto) 0.7 th/mm3 (0.0-0.9); Mono % (Auto) 5.7 % (0.0-8.0); Neut # (Auto) 9.3 th/mm3 (1.8-7.7); Neut % (Auto) 70.3 % (16.0-70.0); Platelet Count 179 th/mm3 (150-450); Red Blood Count 4.28 mil/mm3 (4.00-5.30); Red Cell Distribution Width 13.9 % (11.6-17.2); White Blood Count 13.2 th/mm3 (4.0-11.0)
[2018-03-30 21:11] LABS: Activated Partial Thrombo Time 27.3 sec (24.3-30.1)
[2018-03-30] MEDS ORDERED: Acetaminophen 325 MG Tablet PO ONE (21:19)
[2018-03-30 21:30] LABS: Albumin 3.6 g/dL (3.4-5.0); Anion Gap 8 meq/L (5-15); Aspartate Aminotransferase 17 U/L (15-37); Blood Urea Nitrogen 16 mg/dL (7-18); Calcium 9.4 mg/dL (8.5-10.1); Carbon Dioxide 29.2 meq/L (21.0-32.0); Chloride 104 meq/L (98-107); Glomerular Filtration Rate 81 mL/min (>89); Glucose,Random 99 mg/dL (74-106); Potassium 3.5 meq/L (3.5-5.1); Sodium 141 meq/L (136-145)
[2018-03-30 21:31] LABS: Alanine Aminotransferase 17 U/L (10-53)
[2018-03-30 21:33] LABS: Alkaline Phosphatase 114 U/L (45-117); Total Protein 8.1 g/dL (6.4-8.2)
[2018-03-30] MEDS ORDERED: Bisacodyl 10 MG Supp RECTAL PRN (22:52)
[2018-03-31] MEDS ORDERED: Acetaminophen 325 MG Tablet PO ONE (05:21)
[2018-03-31] MEDS ORDERED: Sodium Chloride 0.9% 2 ML Flush PRN IV.FLUSH (05:24)
[2018-03-31 05:29] LABS: Baso % (Auto) 0.3 % (0.0-2.0); Eos # (Auto) 0.1 th/mm3 (0.0-0.4); Eos % (Auto) 0.9 % (0.0-4.0); Hematocrit 40.9 % (35.0-46.0); Hemoglobin 13.8 gm/dL (11.6-15.3); Lymph # (Auto) 4.5 th/mm3 (1.0-4.8); Lymph % (Auto) 29.6 % (9.0-44.0); Mean Corpuscular HGB Conc 33.7 % (32.0-36.0); Mean Corpuscular Hemoglobin 33.2 pg (27.0-34.0); Mean Corpuscular Volume 98.5 fL (80.0-100.0); Mean Platelet Volume 11.1 fL (7.0-11.0); Mono # (Auto) 0.9 th/mm3 (0.0-0.9); Mono % (Auto) 5.9 % (0.0-8.0); Neut # (Auto) 9.6 th/mm3 (1.8-7.7); Neut % (Auto) 63.3 % (16.0-70.0); Platelet Count 175 th/mm3 (150-450); Red Blood Count 4.15 mil/mm3 (4.00-5.30); Red Cell Distribution Width 13.8 % (11.6-17.2); White Blood Count 15.1 th/mm3 (4.0-11.0)
--- NOTE | 2018-03-31 05:30 | P.HPIM ---
History of Present Illness Primary Care Physician: UNKNOWN History of Present Illness: 82-year-old female history of hypertension who is brought in by ambulance to the ER due to acute onset of dull throbbing whole head headache worse over the right eye starting around 6 PM on 03/30. Patient says she typically gets this kind of headache when her blood pressure is high. She checked her blood pressure and found it to be in the 200s. She took her medication but it did not improve and she called EMS to bring her to the hospital. Patient found to have elevated blood pressures up to 214/89 in the ER, however her blood pressure subsequently improved. She reports that headache has almost completely resolved at this time. Denies any nausea, vomiting, chest pain, shortness of breath. Review of Systems All other systems reviewed negative except as stated in HPI PMFSH - History History Provided By: Patient - Medical History Medical History: Medical History (Last Reviewed 03/31/18 @ 05:22 by Melquiades Grover MD) Arthritis CHF (congestive heart failure) FH: total knee replacement HBP (high blood pressure) Hypothyroidism - Surgical History Surgical History: Surgical History (Last Reviewed 03/31/18 @ 05:22 by Melquiades Grover MD) History of tonsillectomy Hx of cholecystectomy - Family History Family History: Family History (Last Updated 03/31/18 @ 05:23 by Melquiades Grover MD) Father Heart disease Stroke Mother Breast cancer Parkinsons disease - Social History I have reviewed the patient's Social History: Yes - Tobacco History Second Hand Smoke Exposure: No Tobacco Use In Past 30 Days: No Smoking Status: Never smoker - Alcohol History How Often Do You Have a Drink Containing Alcohol: Never - Substance Use History Substance History: No History of Abuse - Travel History Recent Travel in the [place] Within the Last 8 Weeks: No Recent Travel Out of the Country Within the Last 8 Weeks: No - Immunization History Tetanus Immunization: Unsure Medications and Allergies Active Medications: Active Medications Al Hydroxide/Mg Hydroxide (Milk Of Magnesia Liq) 30 ml PO Q12H PRN PRN Reason: Mild Constipation Bisacodyl (Dulcolax Supp) 10 mg RECTAL DAILY PRN PRN Reason: SEVERE CONSITIPATION Clonidine HCl (Catapres) 0.1 mg PO Q6H PRN PRN Reason: SBP>180, DBP>100, HR>65 Gabapentin (Neurontin) 300 mg PO BID [facility] Lactulose (Lactulose Liq) 30 ml PO DAILY PRN PRN Reason: SEVERE CONSITIPATION Levothyroxine Sodium (Synthroid) 125 mcg PO DAILY@0700 [facility] Loratadine (Claritin) 10 mg PO DAILY [facility] Losartan Potassium (Cozaar) 50 mg PO DAILY [facility] Metoprolol Tartrate (Lopressor) 25 mg PO BID [facility] Prednisone (Deltasone) 5 mg PO DAILY [facility] Sennosides (Senokot) 17.2 mg PO Q12H PRN PRN Reason: Moderate Constipation Sodium Chloride (Ns Flush) 2 ml IV.FLUSH PRN PRN PRN Reason: FLUSH AFTER USING IV ACCESS Spironolactone (Aldactone) 25 mg PO DAILY [facility] Allergies Allergy/AdvReac Type Severity Reaction Status Date / Time benazepril Allergy Severe Hives Verified 03/30/18 20:06 captopril Allergy Severe Hives Verified 03/30/18 20:06 diatrizoate meglumine Allergy Severe hives Verified 03/30/18 20:06 enalaprilat Allergy Severe Edema Verified 03/30/18 20:06 fosinopril Allergy Severe Hives Verified 03/30/18 20:06 gadobenic acid Allergy Severe hives Verified 03/30/18 20:06 gadodiamide Allergy Severe hives Verified 03/30/18 20:06 gadoteridol Allergy Severe hives Verified 03/30/18 20:06 iodixanol Allergy Severe hives Verified 03/30/18 20:06 iohexol Allergy Severe hives Verified 03/30/18 20:06 lisinopril Allergy Severe Hives Verified 03/30/18 20:06 nitrofurantoin Allergy Severe Hives Verified 03/30/18 20:06 quinapril Allergy Severe Hives Verified 03/30/18 20:06 Iodinated Contrast- Oral and Allergy Intermediate Hives Verified 03/30/18 20:06 IV Dye Home Medications Medication Instructions Recorded Confirmed Type furosemide [Lasix] 20 mg PO DAILY 03/18/18 03/30/18 History gabapentin 100 mg PO HS 03/18/18 03/30/18 History gabapentin 300 mg PO BID 03/18/18 03/30/18 History levothyroxine [Synthroid] 125 mcg PO DAILY 03/18/18 03/30/18 History loratadine 10 mg PO DAILY 03/18/18 03/30/18 History losartan 50 mg PO DAILY 03/18/18 03/30/18 History metoprolol tartrate 25 mg PO BID 03/18/18 03/30/18 History prednisone 5 mg PO DAILY 03/18/18 03/30/18 History spironolactone 25 mg PO DAILY 03/18/18 03/30/18 History Exam Vital signs: Vital Signs 03/30/18 19:56 03/30/18 21:15 03/30/18 21:30 Temperature 98.1 F Pulse Rate 76 82 76 Respiratory Rate 20 18 18 Blood Pressure 196/114 H 214/89 H 209/95 H Pulse Oximetry 98 97 95 03/30/18 21:45 03/30/18 22:00 03/30/18 22:07 Temperature Pulse Rate 74 80 Respiratory Rate 18 18 18 Blood Pressure 172/78 H 150/60 H Pulse Oximetry 95 96 03/30/18 22:34 03/30/18 23:07 03/30/18 23:45 Temperature Pulse Rate 74 75 76 Respiratory Rate 18 18 Blood Pressure 161/72 H 134/74 130/63 Pulse Oximetry 95 98 97 03/31/18 04:00 Temperature 98.4 F Pulse Rate 77 Respiratory Rate 18 Blood Pressure 140/65 Pulse Oximetry 98 Intake & Output 03/30/18 03/30/18 03/31/18 06:59 18:59 06:59 Weight 113.85 kg Other: Date of Last Bowel Movement 03/30/18 Weight On Admission 113.85 kg Narrative: GENERAL: Patient lying in bed. Sleeping, wakes up for exam appears comfortable. Alert and oriented x3. SKIN: Warm and dry. HEAD: Atraumatic. Normocephalic. EYES: Pupils equal and round. No scleral icterus. No injection or drainage. ENT: No nasal bleeding or discharge. Mucous membranes pink and moist. NECK: Trachea midline. No JVD. CARDIOVASCULAR: Regular rate and rhythm. RESPIRATORY: No accessory muscle use. Clear to auscultation. Breath sounds equal bilaterally. GASTROINTESTINAL: Abdomen soft, non-tender, nondistended. Hepatic and splenic margins not palpable. MUSCULOSKELETAL: Extremities without clubbing, cyanosis, or edema. No obvious deformities. NEUROLOGICAL: Awake and alert. No obvious cranial nerve deficits. Motor grossly within normal limits. Five out of 5 muscle strength in the arms and legs. Normal speech. PSYCHIATRIC: Appropriate mood and affect; insight and judgment normal. Results - Labs CBC & Chem 7: 03/30/18 20:37 03/30/18 20:37 Labs: Short CBC 03/30/18 Range/Units 20:37 WBC 13.2 H (4.0-11.0) th/mm3 Hgb 13.7 (11.6-15.3) gm/dL Hct 40.7 (35.0-46.0) % Plt Count 179 (150-450) th/mm3 BMP 03/30/18 20:37 Sodium 141 Potassium 3.5 Chloride 104 Carbon Dioxide 29.2 BUN 16 Creatinine 0.70 Calcium 9.4 Liver Function 03/30/18 Range/Units 20:37 Total Bilirubin 0.6 (0.2-1.0) mg/dL AST 17 (15-37) U/L ALT 17 (10-53) U/L Alkaline Phosphatase 114 (45-117) U/L Albumin 3.6 (3.4-5.0) g/dL - Imaging Impressions Head CT 03/30/18 20:28 CONCLUSION: 1. Negative CT Head non contrast. . Caprini VTE Risk Assessment Caprini VTE Risk Assessment: Moderate/High Risk (score >= 2) Caprini Risk Assessment Model: Point Value = 1 Point Value = 2 Point Value = 3 Point Value = 5 Age 41-60 Minor surgery BMI > 25 kg/m2 Swollen legs Varicose veins or History of unexplained or recurrent spontaneous Oral contraceptives or hormone replacement Sepsis (< 1 month) Serious lung disease, including pneumonia (< 1 month) Abnormal pulmonary function Acute myocardial infarction Congestive heart failure (< 1 month) History of inflammatory bowel disease Medical patient at bed rest Age 61-74 Arthroscopic surgery Major open surgery (> 45 min) Laparoscopic surgery (> 45 min) Malignancy Confined to bed (> 72 hours) Immobilizing plaster cast Central venous access Age >= 75 History of VTE Family history of VTE Factor V Leiden Prothrombin [id number] Lupus anticoagulant Anticardiolipin antibodies Elevated serum homocysteine Heparin-induced thrombocytopenia Other congenital or acquired thrombophilia Stroke (< 1 month) Elective arthroplasty Hip, pelvis, or leg fracture Acute spinal cord injury (< 1 month) Prophylaxis Regimen: Total Risk Factor Score Risk Level Prophylaxis Regimen 0-1 Low Early ambulation 2 Moderate Order ONE of the following: *Sequential Compression Device (SCD) *Heparin 5000 units SQ BID 3-4 Higher Order ONE of the following medications: *Heparin 5000 units SQ TID *Enoxaparin/Lovenox 40 mg SQ daily (WT < 150 kg, CrCl > 30 mL/min) *Enoxaparin/Lovenox 30 mg SQ daily (WT < 150 kg, CrCl > 10-29 mL/min) *Enoxaparin/Lovenox 30 mg SQ BID (WT < 150 kg, CrCl > 30 mL/min) AND/OR *Sequential Compression Device (SCD) 5 or more Highest Order ONE of the following medications: *Heparin 5000 units SQ TID (Preferred with Epidurals) *Enoxaparin/Lovenox 40 mg SQ daily (WT < 150 kg, CrCl > 30 mL/min) *Enoxaparin/Lovenox 30 mg SQ daily (WT < 150 kg, CrCl > 10-29 mL/min) *Enoxaparin/Lovenox 30 mg SQ BID (WT < 150 kg, CrCl > 30 mL/min) AND *Sequential Compression Device (SCD) Assessment and Plan - Plan //Hypertensive urgency = Improved with resumption of home blood pressure medications. Continue to monitor. Patient may benefit from home health for medication management at time of discharge //Acute onset headache. CT head with no acute findings. ESR elevated in the 40s. Likely secondary to hypertension as this has improved greatly with control of blood pressure. //Chronic arthritis on intermittent prednisone Continue prednisone //Hypothyroidism. Patient reports recently abnormal lab values. We will continue home medications and check TSH. Discussed Condition With: Patient, nurse, ED physician. H&P: Quality - VTE Deep Vein Thrombosis/Pulmonary Embolism Present on Admission: No
[2018-03-31 05:50] LABS: Albumin 3.6 g/dL (3.4-5.0); Anion Gap 9 meq/L (5-15); Aspartate Aminotransferase 14 U/L (15-37); Blood Urea Nitrogen 13 mg/dL (7-18); Calcium 9.5 mg/dL (8.5-10.1); Carbon Dioxide 29.3 meq/L (21.0-32.0); Chloride 107 meq/L (98-107); Glomerular Filtration Rate 73 mL/min (>89); Glucose,Random 93 mg/dL (74-106); Potassium 3.3 meq/L (3.5-5.1); Sodium 145 meq/L (136-145)
[2018-03-31 05:51] LABS: Alanine Aminotransferase 16 U/L (10-53)
[2018-03-31 06:01] LABS: Alkaline Phosphatase 109 U/L (45-117); Thyroid Stimulating Hormone 0.169 uIU/mL (0.358-3.740); Total Protein 8.1 g/dL (6.4-8.2)
[2018-03-31] MEDS ORDERED: Levothyroxine 125 MCG Tablet PO SCH (07:00)
[2018-03-31] MEDS ORDERED: Sodium Chloride 0.9% 2 ML Flush BID IV.FLUSH SCH (09:00)
[2018-03-31] MEDS ORDERED: predniSONE 5 MG Tablet PO SCH (09:00)
[2018-03-31] MEDS ORDERED: Gabapentin 300 MG Capsule PO SCH (09:00)
[2018-03-31] MEDS ORDERED: Loratadine 10 MG Tablet PO SCH (09:00)
[2018-03-31] MEDS ORDERED: Metoprolol Tartrate 25 MG Tablet PO SCH (09:00)
[2018-03-31] MEDS ORDERED: Spironolactone 25 MG Tablet PO SCH (09:00)
--- NOTE | 2018-03-31 10:53 | MB ---
cc: Isaías Enriquez MD DATE: 03/31/2018 HISTORY OF PRESENT ILLNESS: An 82-year-old right-handed woman with hypertension. Otherwise, she has been very healthy and then she says whenever her blood pressure goes high she develops a headache and in fact, she developed a headache yesterday and her diastolic blood pressure is 107. She came into the hospital and the headache has gone away. No asymmetrical weakness or numbness. She has some tingling in her feet from spinal stenosis, which is chronic. She denies any memory loss or shuffling gait. She had a CAT scan of the brain that shows some generous ventricles, but no infarcts are noted and she does not have any symptoms of normal pressure hydrocephalus. REVIEW OF SYSTEMS: She denied any diabetes, hypercholesterolemia, ME, stent, angioplasty, AFib, Coumadin; renal, hepatic, pulmonary disease, thyroid disease, lupus, ulcer, cancer, seizure or stroke. SOCIAL HISTORY: Nonsmoker, drinker; lives by herself. FAMILY HISTORY: Positive for cancer in mother; negative for seizure, stroke. MEDICATIONS AT HOME: She is on: 1. Spironolactone. 2. Prednisone 5 a day. 3. Metoprolol. 4. Losartan. 5. Loratadine. 6. Synthroid. 7. Gabapentin 300 b.i.d. 100 at bedtime. 8. Lasix. PAST MEDICAL HISTORY: Some CHF, hypothyroidism and is on Synthroid at home. ALLERGIES: 1. BENAZEPRIL 2. CAPTOPRIL. 3. ENALAPRIL. 4. LISINOPRIL. 5. NITROFURANTOIN. 6. IODINATED CONTRAST. PHYSICAL EXAMINATION: VITAL SIGNS: Initial blood pressure 196/114-214/89; now down to 130/63. NECK: There are no carotid bruits. HEENT: Temples are nontender on my exam. HEART: Regular rate and rhythm. I did not detect a murmur. GENERAL: She is significantly obese. NEUROLOGIC: Pupils are equal. Could not see her disks well. Visual fox are full. Extraocular movements intact without nystagmus. Hearing was intact to finger rub bilaterally. Face was symmetric with normal sensation. Tongue was midline. No drift. Normal strength in upper and lower extremities bilaterally. Toes downgoing bilaterally. DTRs absent throughout. Pinprick is intact throughout. Is not ataxic on [id number]. Speech is fluent. She is not aphasic. Alert and oriented x3, gives a good history. LABORATORY DATA: CBC: White count 15,000. Sedimentation rate 45. TSH slightly low; albumin normal. LFTs normal. GFR normal. BMP essentially normal. Coags normal. IMAGING: CAT scan of the brain is noted essentially unremarkable, except for slightly enlarged ventricles. IMPRESSION: Just a headache from the high blood pressure. I will check a urinalysis. She might have a urinary tract infection with the elevated white count. Otherwise, she is okay to be discharged. I would try to get her blood pressure to 120/70 and she should notify Dr. Boswell that her blood pressures were running too high again, but I do not think there is anything new here neurologically and I will sign off the case. She tells me he has not had any headaches since 8 months ago the last time her blood pressure was too high. Med Team, please followup her urinalysis results. MD ANUM Gutierrez/jules/dru , 09:04 AM , 09:11 AM
--- NOTE | 2018-03-31 11:25 | P.PNIM ---
Subjective Interval history: Headache resolved. Blood pressure is now stabilized. No prior history of hypertensive emergency. Patient feels back to baseline. Medically stable and cleared for discharge home today. Physical Exam Vital signs: Vital Signs 03/30/18 19:56 03/30/18 21:15 03/30/18 21:30 Temperature 98.1 F Pulse Rate 76 82 76 Respiratory Rate 20 18 18 Blood Pressure 196/114 H 214/89 H 209/95 H Pulse Oximetry 98 97 95 03/30/18 21:45 03/30/18 22:00 03/30/18 22:07 Temperature Pulse Rate 74 80 Respiratory Rate 18 18 Blood Pressure 172/78 H 150/60 H Pulse Oximetry 95 96 03/30/18 22:34 03/30/18 23:07 03/30/18 23:45 Temperature Pulse Rate 74 75 76 Respiratory Rate 18 18 18 Blood Pressure 161/72 H 134/74 130/63 Pulse Oximetry 95 98 97 03/31/18 04:00 03/31/18 09:03 Temperature 98.4 F 98.1 F Pulse Rate 77 66 Respiratory Rate 18 16 Blood Pressure 140/65 102/55 L Pulse Oximetry 98 95 Intake & Output 03/30/18 03/31/18 03/31/18 18:59 06:59 18:59 Weight 113.85 kg Other: # Voids 1 Date of Last Bowel Movement 03/30/18 03/31/18 Weight On Admission 113.85 kg Narrative: GENERAL: NAD, A&Ox3 HEAD: Normocephalic. NECK: Supple, trachea midline. No lymphadenopathy. EYES: No scleral icterus. No injection or drainage. CARDIOVASCULAR: Regular rate and rhythm without murmurs, gallops, or rubs. RESPIRATORY: Breath sounds equal bilaterally. No accessory muscle use. GASTROINTESTINAL: Abdomen soft, non-tender, nondistended. MUSCULOSKELETAL: No cyanosis, or edema. SKIN: Warm and dry. NEURO: No focal neurological deficits. Results - Labs CBC & Chem 7: 03/31/18 04:20 03/31/18 04:20 Laboratory Results - last 24 hr 03/30/18 03/30/18 03/30/18 20:37 20:37 20:37 WBC 13.2 H RBC 4.28 Hgb 13.7 Hct 40.7 MCV 95.2 MCH 32.1 MCHC 33.7 RDW 13.9 Plt Count 179 MPV 11.3 H Neut % (Auto) 70.3 H Lymph % (Auto) 22.8 Citrus % (Auto) 5.7 Eos % (Auto) 0.8 Baso % (Auto) 0.4 Neut # (Auto) 9.3 H Lymph # (Auto) 3.0 Citrus # (Auto) 0.7 Eos # (Auto) 0.1 Baso # (Auto) 0.1 WBC Differential . Differential Comment Auto diff final ESR PT 10.0 INR 1.0 APTT 27.3 Sodium 141 Potassium 3.5 Chloride 104 Carbon Dioxide 29.2 Anion Gap 8 BUN 16 Creatinine 0.70 Estimated GFR 81 L Random Glucose 99 Calcium 9.4 Total Bilirubin 0.6 AST 17 ALT 17 Alkaline Phosphatase 114 Total Protein 8.1 Albumin 3.6 TSH 03/30/18 03/31/18 03/31/18 20:37 04:20 04:20 WBC 15.1 H RBC 4.15 Hgb 13.8 Hct 40.9 MCV 98.5 MCH 33.2 MCHC 33.7 RDW 13.8 Plt Count 175 MPV 11.1 H Neut % (Auto) 63.3 Lymph % (Auto) 29.6 Citrus % (Auto) 5.9 Eos % (Auto) 0.9 Baso % (Auto) 0.3 Neut # (Auto) 9.6 H Lymph # (Auto) 4.5 Citrus # (Auto) 0.9 Eos # (Auto) 0.1 Baso # (Auto) 0.0 WBC Differential . Differential Comment Auto diff final ESR 45 H PT INR APTT Sodium 145 Potassium 3.3 L Chloride 107 Carbon Dioxide 29.3 Anion Gap 9 BUN 13 Creatinine 0.76 Estimated GFR 73 L Random Glucose 93 Calcium 9.5 Total Bilirubin 1.0 AST 14 L ALT 16 Alkaline Phosphatase 109 Total Protein 8.1 Albumin 3.6 TSH 0.169 L - Imaging Impressions Head CT 03/30/18 20:28 CONCLUSION: 1. Negative CT Head non contrast. . Assessment and Plan - Plan 82-year-old female admitted secondary to hypertensive emergency Hypertensive emergency Acute headache Both of these have resolved. Continue baseline treatments Patient will be discharged with an as needed clonidine Monitor blood pressures at home Medically clear and stable for discharge home today Chronic arthritis Continue prednisone as needed Hypothyroidism Continue Synthroid and follow as an outpatient
== END 2018-03-31 12:11 | disposition home or self-care (01) ==
LOC: NEPD 19:42 → NEDA 19:42 → NEPFCDU 23:45 → NEDA 23:59
PROVIDERS: ADMIT Hospitalist; ATTEND Hospitalist